=== PATIENT | male | born 1940 | race Caucasian/White ===

== ENCOUNTER 2017-04-02 17:03 | Emergency (ER) | payer OTHER ==
[~2017-04-02] VITALS: Ht 175.3 cm; Wt 70.2 kg
[~2017-04-02 17:03] MED LIST: ALEVE220 MG PO; AMLODIPINE BESY10 MG PO; AMLODIPINE BESYL5 MG PO; ASPIRIN325 MG PO; BENADRYL50 MG PO; CALCIUM 600 +1 EA15 PO; CIPRO500 MG PO; CLEAR EYES ITCH15 ML BOTH EYES; CYANOCOBALAM1000 MCG PO; ELIQUIS5 MG PO; FLAGYL500 MG PO; IMODIUM MS REL1 EACH PO; LISINOPRIL20 MG PO; LO-DOSE ASPIRIN81 M2 PO; LOPERAMIDE2 MG PO; METOPROLOL SUCC50 MG PO; NORVASC2.5 MG PO; PREDNISONE5 MG PO; PROBIOTIC1 EAC1 PO; REQUIP5 MG PO; SIMVASTATIN40 MG PO; VITAMIN B12; WARFARIN SODIU2.5 MG PO; WARFARIN SODIUM5 MG PO; probiotic PO
[2017-04-02 17:54] LABS: MCH 30.3 PG (29.0-34.0); MCHC 33.3 G/DL (30.0-36.0); MEAN PLAT.VOLUME 10.6 uM^3 (9.0-12.4); PLATELET COUNT 101 K/uL (156-360); RBC DIS.WIDTH-CV 17.8 % (11.8-14.6); RBC DIS.WIDTH-SD 59.8 % (39-53); RED BLOOD COUNT 3.96 M/uL (4.00-5.50); WHITE BLOOD COUNT 8.1 K/uL (4.1-10.2)
[2017-04-02 18:00] LABS: MCV 90.9 FL (86-99)
[2017-04-02 18:05] LABS: CHLORIDE 108 mEq/L (99-109); POTASSIUM 3.9 mEq/L (3.7-5.4); SODIUM 140 mEq/L (136-147)
[2017-04-02 18:07] LABS: GLUCOSE 86 mg/dL (70-99)
[2017-04-02 18:09] LABS: ANION GAP 10 MEQ/L (2-14); TOTAL BILIRUBIN 0.6 mg/dL (0.0-1.0)
[2017-04-02 18:11] LABS: ALKALINE PHOSPHATASE 70 IU/L (3-129); GFR ESTIMATE (CALCULATED) 48 mL/min/
[2017-04-02 18:12] LABS: UREA NITROGEN (BUN) 23 mg/dL (9-23)
[2017-04-02 18:15] LABS: TROP-I INTERPRETATION NEGATIVE; TROPONIN-I < 0.01 ng/mL (0.0-0.30)
[2017-04-02 18:40] LABS: INTER. NORMALIZED RATIO 1.6; PROTHROMBIN TIME 16.9 (9.2-11.2)
[2017-04-02 19:20] VITALS: BP 146/65
[2017-04-02 19:32] LABS: EOSINOPHIL (%) 0.9 % (0-5); EOSINOPHIL COUNT 0.1 K/uL (0-0.3); HEMATOLOGY COMMENT 1 SMEAR COMPATIBLE; IMMATURE GRANULOCYTE COUNT 0.6 K/uL; INSTRUMENT ABS NEUTROPHIL CT 5.1 K/uL; LYMPHOCYTE COUNT 1.6 K/uL (1.0-2.8); MONOCYTE (%) 7.8 % (3-12); MONOCYTE COUNT 0.6 K/uL (0-0.8); NEUTROPHIL (%) 63.8 % (45-76); NEUTROPHIL COUNT 5.1 K/uL (1.8-6.4); PLAT.SUFFICIENCY ADEQUATE
== END 2017-04-02 19:20 | disposition home or self-care (01) ==
LOC: EME 17:03
PROVIDERS: Physician Assistant
DX: R00.1 Bradycardia, unspecified (principal); R42 Dizziness and giddiness; E78.5 Hyperlipidemia, unspecified; Z87.891 Personal history of nicotine dependence
CPT/HCPCS: 71010; 80053; 81003; 84484; 85025; 85610; 93005; 99281; 99284

== ENCOUNTER → 2017-07-11 | Outpatient (CLI) | payer OTHER | END | disposition home or self-care (01) | LOC: JMC 07:30 | PROC: 07DR3ZX Extraction of Iliac Bone Marrow, Percutaneous Approach, Diagnostic (ICD-10-PCS; principal; 2017-07-11) | DX: D64.9 Anemia, unspecified (principal); D69.6 Thrombocytopenia, unspecified | CPT/HCPCS: 38221; 85999; 88184 90; 88185 90; 88189 90; 88237 90; 88264 90; 88271 90; 88275 90; 88280 90; 88291 90; G0463 25 ==

== ENCOUNTER → 2017-11-23 | Outpatient (CLI) | payer OTHER ==
[~2017-11-23] VITALS: Ht 174 cm; Wt 68.0 kg
[~2017-11-23] MED LIST changes: +OMEPRAZOLE40 M1 PO
== END | disposition home or self-care (01) ==
LOC: AMB 11-09 11:30
PROC: 0DBN8ZX Excision of Sigmoid Colon, Via Natural or Artificial Opening Endoscopic, Diagnostic (ICD-10-PCS; principal; 2017-11-23)
DX: K57.30 Diverticulosis of large intestine without perforation or abscess without bleeding (principal); K56.2 Volvulus; I10 Essential (primary) hypertension; K21.9 Gastro-esophageal reflux disease without esophagitis; Z95.0 Presence of cardiac pacemaker; Z79.82 Long term (current) use of aspirin; Z79.01 Long term (current) use of anticoagulants; Z87.891 Personal history of nicotine dependence
CPT/HCPCS: 88305

== ENCOUNTER 2018-01-19 13:13 | Emergency (ER) | payer OTHER ==
[~2018-01-19] VITALS: Ht 175.3 cm; Wt 67.2 kg
[2018-01-19 13:50] LABS: HEMATOCRIT 37.3 % (38.0-50.0); HEMOGLOBIN 12.2 G/DL (12.5-16.6); MCH 28.1 PG (29.0-34.0); MCHC 32.7 G/DL (30.0-36.0); MCV 85.9 FL (86-99); PLATELET COUNT 84 K/uL (156-360); RBC DIS.WIDTH-CV 19.4 % (11.8-14.6); RBC DIS.WIDTH-SD 60.4 % (39-53); RED BLOOD COUNT 4.34 M/uL (4.00-5.50); WHITE BLOOD COUNT 14.7 K/uL (4.1-10.2)
[2018-01-19 13:58] LABS: ALBUMIN 3.8 g/dL (3.2-4.8)
[2018-01-19 13:59] LABS: CHLORIDE 107 mEq/L (99-109); POTASSIUM 3.8 mEq/L (3.7-5.4); SODIUM 139 mEq/L (136-147)
[2018-01-19 14:01] LABS: GLUCOSE 92 mg/dL (70-99)
[2018-01-19 14:03] LABS: TOTAL BILIRUBIN 1.5 mg/dL (0.0-1.0)
[2018-01-19 14:04] LABS: ALKALINE PHOSPHATASE 74 IU/L (3-129)
[2018-01-19 14:05] LABS: CREATININE 1.2 mg/dL (0.6-1.3); GFR ESTIMATE (CALCULATED) > 59 mL/min/ (58.99-99999)
[2018-01-19 14:06] LABS: AST (GOT) 19 IU/L (2-34); UREA NITROGEN (BUN) 20 mg/dL (9-23)
[2018-01-19 14:07] LABS: ALT (GPT) 14 IU/L (3-49)
[2018-01-19] MEDS ORDERED: CIPRO500 MG PO (15:18)
[2018-01-19] MEDS ORDERED: FLAGYL500 MG PO (15:18)
[2018-01-19] MEDS ORDERED: ZOFRAN ODT4 MG PO (15:19)
[2018-01-19] MEDS ORDERED: BENTYL10 MG PO (15:19)
[2018-01-19 15:50] VITALS: BP 145/64
== END 2018-01-19 15:52 | disposition home or self-care (01) ==
LOC: EME 13:13
PROVIDERS: Nurse Practitioner Family
DX: K57.90 Diverticulosis of intestine, part unspecified, without perforation or abscess without bleeding (principal); K59.00 Constipation, unspecified; R11.0 Nausea; E78.5 Hyperlipidemia, unspecified; K21.9 Gastro-esophageal reflux disease without esophagitis; Z85.72 Personal history of non-Hodgkin lymphomas; Z85.828 Personal history of other malignant neoplasm of skin; Z87.891 Personal history of nicotine dependence; Z79.01 Long term (current) use of anticoagulants; Z79.82 Long term (current) use of aspirin
CPT/HCPCS: 74177; 80053; 85027; 99281; 99284; J2405; J7030

== ENCOUNTER 2018-01-21 10:28 | Emergency (ER) | payer OTHER ==
[~2018-01-21] VITALS: Ht 175.3 cm; Wt 67.6 kg
[~2018-01-21 10:28] MED LIST changes: +BENTYL10 MG PO; +ZOFRAN ODT4 MG PO
[2018-01-21 10:58] LABS: HEMATOCRIT 35.5 % (38.0-50.0); HEMOGLOBIN 11.6 G/DL (12.5-16.6); MCHC 32.7 G/DL (30.0-36.0); MCV 85.5 FL (86-99); PLATELET COUNT 75 K/uL (156-360); RBC DIS.WIDTH-CV 18.5 % (11.8-14.6); RBC DIS.WIDTH-SD 57.8 % (39-53); RED BLOOD COUNT 4.15 M/uL (4.00-5.50); WHITE BLOOD COUNT 7.8 K/uL (4.1-10.2)
[2018-01-21 11:07] LABS: PTT 27.3 SEC (25-37)
[2018-01-21 11:08] LABS: INTER. NORMALIZED RATIO 1.7
[2018-01-21 11:12] LABS: CHLORIDE 106 mEq/L (99-109); POTASSIUM 3.7 mEq/L (3.7-5.4); SODIUM 137 mEq/L (136-147)
[2018-01-21 11:14] LABS: GLUCOSE 130 mg/dL (70-99)
[2018-01-21 11:18] LABS: CREATININE 1.4 mg/dL (0.6-1.3); GFR ESTIMATE (CALCULATED) 52 mL/min/ (58.99-99999)
[2018-01-21 11:19] LABS: UREA NITROGEN (BUN) 22 mg/dL (9-23)
[2018-01-21 11:24] LABS: TROP-I INTERPRETATION NEGATIVE; TROPONIN-I < 0.01 ng/mL (0.0-0.30)
[2018-01-21 11:42] LABS: ABS NEUTROPHIL COUNT 7.1; ANISOCYTOSIS 2+; ATYPICAL LYMPHOCYTE 1.8 %; BAND NEUTROPHILS 0.9 % (0-8.0); EOSINOPHIL ABS CT 0; LYMPHOCYTES 5.3 % (15.0-45.0); MICROCYTOSIS 2+; MONOCYTES 1.7 % (0-9.0); PLAT.SUFFICIENCY DECREASED; POLYCHROMASIA 1+
[2018-01-21 11:45] LABS: SEG.NEUTROPHILS 90.3 % (46.0-76.0)
[2018-01-21 13:22] LABS: APPEARANCE CLEAR ((CLEAR)); BILIRUBIN NEGATIVE; BLOOD NEGATIVE; COLOR YELLOW ((YELLOW)); GLUCOSE (STRIP) NEGATIVE; KETONES 5; LEUKOCYTES NEGATIVE; NITRITE NEGATIVE; PROTEIN (STRIP) NEGATIVE; SPECIFIC GRAVITY 1.009 (1.000-1.030); UCUL ADDED? NO; UROBILINOGEN 0.2 MG/DL (0.2-1.0)
[2018-01-21 14:12] VITALS: BP 131/75
== END 2018-01-21 14:12 | disposition home or self-care (01) ==
LOC: EME 10:28
PROVIDERS: Emergency Medicine
DX: R42 Dizziness and giddiness (principal); K52.9 Noninfective gastroenteritis and colitis, unspecified; Z87.891 Personal history of nicotine dependence; K21.9 Gastro-esophageal reflux disease without esophagitis; E78.5 Hyperlipidemia, unspecified; Z85.828 Personal history of other malignant neoplasm of skin; Z95.5 Presence of coronary angioplasty implant and graft; R31.9 Hematuria, unspecified; R11.0 Nausea; R53.1 Weakness; Z79.82 Long term (current) use of aspirin; Z79.01 Long term (current) use of anticoagulants
CPT/HCPCS: 70450; 71045; 74176; 80048; 81003; 83605; 84484; 85025; 85610; 85730; 93005; 99281; 99285

== ENCOUNTER 2018-02-02 03:52 | Inpatient (IN) | payer OTHER ==
[~2018-02-02] VITALS: Ht 172.7 cm; Wt 68.6 kg
[~2018-02-02 03:52] MED LIST changes: +COUMADIN5 MG PO; -WARFARIN SODIU2.5 MG PO
[2018-02-02 04:47] LABS: HEMATOCRIT 34.8 % (38.0-50.0); HEMOGLOBIN 11.6 G/DL (12.5-16.6); MCHC 33.3 G/DL (30.0-36.0); MCV 84.1 FL (86-99); PLATELET COUNT 82 K/uL (156-360); RBC DIS.WIDTH-CV 17.7 % (11.8-14.6); RBC DIS.WIDTH-SD 54.2 % (39-53); RED BLOOD COUNT 4.14 M/uL (4.00-5.50)
[2018-02-02 04:55] LABS: ALBUMIN 3.3 g/dL (3.2-4.8); CHLORIDE 110 mEq/L (99-109); POTASSIUM 3.6 mEq/L (3.7-5.4); SODIUM 143 mEq/L (136-147)
[2018-02-02 04:57] LABS: GLUCOSE 94 mg/dL (70-99); TOTAL PROTEIN 6.1 g/dL (6.4-8.3)
[2018-02-02 04:59] LABS: TOTAL BILIRUBIN 0.5 mg/dL (0.0-1.0)
[2018-02-02 05:01] LABS: ALKALINE PHOSPHATASE 67 IU/L (3-129); GFR ESTIMATE (CALCULATED) > 59 mL/min/ (58.99-99999)
[2018-02-02 05:02] LABS: UREA NITROGEN (BUN) 17 mg/dL (9-23)
[2018-02-02 05:03] LABS: AST (GOT) 15 IU/L (2-34)
[2018-02-02 05:04] LABS: ALT (GPT) 12 IU/L (3-49); LIPASE 31 U/L (1.0-51.0)
[2018-02-02 05:21] LABS: ABS NEUTROPHIL COUNT 3.7; ANISOCYTOSIS 2+; ATYPICAL LYMPHOCYTE 3.5 %; BASOPHILS 3.5 %; EOSINOPHIL ABS CT 0; MICROCYTOSIS 1+; MONOCYTES 5.3 % (0-9.0); PLAT.SUFFICIENCY DECREASED; TEAR DROP CELLS 1+
[2018-02-02 05:23] LABS: LYMPHOCYTES 25.4 % (15.0-45.0); SEG.NEUTROPHILS 62.3 % (46.0-76.0)
[2018-02-02] MEDS ORDERED: ASCORBIC ACID500 M3 PO (07:56)
[2018-02-02 09:13] LABS: LACTATE DEHYDROGENASE 227 IU/L (20-246)
[2018-02-02 09:15] LABS: APPEARANCE CLEAR ((CLEAR)); BILIRUBIN NEGATIVE; BLOOD NEGATIVE; COLOR STRAW ((YELLOW)); GLUCOSE (STRIP) NEGATIVE; KETONES NEGATIVE; LEUKOCYTES NEGATIVE; NITRITE NEGATIVE; PROTEIN (STRIP) NEGATIVE; SPECIFIC GRAVITY 1.025 (1.000-1.030); UCUL ADDED? NO; UROBILINOGEN 0.2 MG/DL (0.2-1.0)
[2018-02-02 15:15] LABS: INTER. NORMALIZED RATIO 2.2
[2018-02-02 16:23] VITALS: BP 163/70
[2018-02-02 20:58] VITALS: BP 165/74
[2018-02-03 00:11] VITALS: BP 158/77
[2018-02-03 06:43] VITALS: BP 160/67
[2018-02-03 06:49] LABS: HEMATOCRIT 35.4 % (38.0-50.0); HEMOGLOBIN 11.5 G/DL (12.5-16.6); MCH 27.4 PG (29.0-34.0); MCHC 32.5 G/DL (30.0-36.0); MCV 84.3 FL (86-99); RBC DIS.WIDTH-CV 17.4 % (11.8-14.6); RBC DIS.WIDTH-SD 53.3 % (39-53); WHITE BLOOD COUNT 6.4 K/uL (4.1-10.2)
[2018-02-03 07:14] LABS: CHLORIDE 107 MEQ/L (99-109); GFR ESTIMATE (CALCULATED) > 59 mL/min/ (58.99-99999); GLUCOSE 87 mg/dL (70-99); SODIUM 141 MEQ/L (136-147); UREA NITROGEN (BUN) 10 mg/dL (9-23)
[2018-02-03 07:18] LABS: POTASSIUM 4.6 MEQ/L (3.7-5.4)
[2018-02-03 07:42] LABS: PLAT.SUFFICIENCY DECREASED; PLATELET COUNT 72 K/uL (156-360)
[2018-02-03 12:22] VITALS: BP 149/69
[2018-02-03 15:30] VITALS: BP 156/66
[2018-02-03 20:00] VITALS: BP 122/59
[2018-02-03 23:55] VITALS: BP 146/66
[2018-02-04 04:16] VITALS: BP 122/56
[2018-02-04 06:56] LABS: HEMATOCRIT 32.5 % (38.0-50.0); HEMOGLOBIN 10.7 G/DL (12.5-16.6); MCH 27.6 PG (29.0-34.0); MCHC 32.9 G/DL (30.0-36.0); PLATELET COUNT 62 K/uL (156-360); RBC DIS.WIDTH-CV 17.2 % (11.8-14.6); RBC DIS.WIDTH-SD 52.9 % (39-53); RED BLOOD COUNT 3.87 M/uL (4.00-5.50)
[2018-02-04 07:00] LABS: INTER. NORMALIZED RATIO 1.4
[2018-02-04 07:10] VITALS: BP 125/59
[2018-02-04 07:21] LABS: CHLORIDE 106 MEQ/L (99-109); GFR ESTIMATE (CALCULATED) > 59 mL/min/ (58.99-99999); GLUCOSE 89 mg/dL (70-99); PHOSPHORUS 2.6 mg/dL (2.5-4.9); POTASSIUM 3.9 MEQ/L (3.7-5.4); SODIUM 138 MEQ/L (136-147); UREA NITROGEN (BUN) 10 mg/dL (9-23)
[2018-02-04 07:58] LABS: CARCINOEMBR.ANTIGEN 3.9 NG/ML
[2018-02-04 08:03] LABS: FERRITIN 85 NG/ML (22-322)
[2018-02-04 11:00] VITALS: BP 132/63
[2018-02-04 15:30] VITALS: BP 131/63
[2018-02-04 21:51] VITALS: BP 179/72
[2018-02-04 23:52] VITALS: BP 108/53
[2018-02-05] VITALS (7 sets, daily range): BP systolic 110–145; BP diastolic 55–65
[2018-02-05 07:10] LABS: PLATELET COUNT 80 K/uL (156-360)
[2018-02-05 07:15] LABS: HEMATOCRIT 29.4 % (38.0-50.0); HEMOGLOBIN 9.3 G/DL (12.5-16.6); MCH 27.4 PG (29.0-34.0); MCHC 31.6 G/DL (30.0-36.0); MCV 86.5 FL (86-99); RBC DIS.WIDTH-CV 17.2 % (11.8-14.6)
[2018-02-05 08:09] LABS: INTER. NORMALIZED RATIO 1.3
[2018-02-05 08:11] LABS: PTT 21.9 SEC (25-37)
[2018-02-05 08:19] LABS: CHLORIDE 105 MEQ/L (99-109); CREATININE 1.3 MG/DL (0.6-1.3); GFR ESTIMATE (CALCULATED) 57 mL/min/ (58.99-99999); POTASSIUM 4.1 MEQ/L (3.7-5.4); SODIUM 138 MEQ/L (136-147); UREA NITROGEN (BUN) 17 mg/dL (9-23)
[2018-02-05 08:26] LABS: GLUCOSE 152 mg/dL (70-99); MAGNESIUM 1.5 mg/dl (1.3-2.7); PHOSPHORUS 4.1 mg/dL (2.5-4.9)
[2018-02-06] VITALS (12 sets, daily range): BP systolic 109–138; BP diastolic 50–65
[2018-02-06 06:52] LABS: INTER. NORMALIZED RATIO 1.4
[2018-02-06 07:11] LABS: HEMATOCRIT 21.4 % (38.0-50.0); MCH 27.8 PG (29.0-34.0); MCHC 32.2 G/DL (30.0-36.0); MCV 86.3 FL (86-99); RBC DIS.WIDTH-CV 17.8 % (11.8-14.6); RBC DIS.WIDTH-SD 56.1 % (39-53); WHITE BLOOD COUNT 17.2 K/uL (4.1-10.2)
[2018-02-06 07:12] LABS: HEMOGLOBIN 6.9 G/DL (12.5-16.6); RED BLOOD COUNT 2.48 M/uL (4.00-5.50)
[2018-02-06 07:17] LABS: CHLORIDE 109 MEQ/L (99-109); CREATININE 0.9 MG/DL (0.6-1.3); GFR ESTIMATE (CALCULATED) > 59 mL/min/ (58.99-99999); GLUCOSE 117 mg/dL (70-99); MAGNESIUM 1.6 mg/dl (1.3-2.7); POTASSIUM 3.8 MEQ/L (3.7-5.4); SODIUM 138 MEQ/L (136-147); UREA NITROGEN (BUN) 13 mg/dL (9-23)
[2018-02-06 07:28] LABS: PHOSPHORUS 1.7 mg/dL (2.5-4.9)
[2018-02-06 07:49] LABS: IMM.PLATELET FRACTION 9.8 (1-7); PLAT.SUFFICIENCY DECREASED
[2018-02-06 07:54] LABS: PLATELET COUNT 44 K/uL (156-360)
[2018-02-06 18:12] LABS: HEMATOCRIT 25.3 % (38.0-50.0); HEMOGLOBIN 8.4 G/DL (12.5-16.6); MCV 86.3 FL (86-99)
[2018-02-07 00:27] VITALS: BP 136/63
[2018-02-07 04:39] VITALS: BP 135/63
[2018-02-07 06:23] LABS: HEMATOCRIT 26.2 % (38.0-50.0); HEMOGLOBIN 8.7 G/DL (12.5-16.6); MCH 28.3 PG (29.0-34.0); MCHC 33.2 G/DL (30.0-36.0); MCV 85.3 FL (86-99); RBC DIS.WIDTH-CV 16.3 % (11.8-14.6); RBC DIS.WIDTH-SD 49.6 % (39-53); WHITE BLOOD COUNT 11.2 K/uL (4.1-10.2)
[2018-02-07 06:24] LABS: RED BLOOD COUNT 3.07 M/uL (4.00-5.50)
[2018-02-07 06:30] LABS: INTER. NORMALIZED RATIO 1.3
[2018-02-07 06:49] LABS: CHLORIDE 110 MEQ/L (99-109); CREATININE 0.9 MG/DL (0.6-1.3); GFR ESTIMATE (CALCULATED) > 59 mL/min/ (58.99-99999); GLUCOSE 110 mg/dL (70-99); MAGNESIUM 1.7 mg/dl (1.3-2.7); POTASSIUM 3.6 MEQ/L (3.7-5.4); SODIUM 141 MEQ/L (136-147); UREA NITROGEN (BUN) 9 mg/dL (9-23)
[2018-02-07 06:52] LABS: IMM.PLATELET FRACTION 9.9 (1-7); PHOSPHORUS 2.3 mg/dL (2.5-4.9); PLAT.SUFFICIENCY DECREASED; PLATELET COUNT 34 K/uL (156-360)
[2018-02-07 08:07] VITALS: BP 128/59
[2018-02-07 11:31] VITALS: BP 136/63
[2018-02-07 15:37] VITALS: BP 122/60
[2018-02-07 20:17] VITALS: BP 128/60
[2018-02-08 00:40] VITALS: BP 136/64
[2018-02-08 06:36] LABS: HEMATOCRIT 28.6 % (38.0-50.0); HEMOGLOBIN 9.3 G/DL (12.5-16.6); MCH 28.3 PG (29.0-34.0); MCHC 32.5 G/DL (30.0-36.0); MCV 86.9 FL (86-99); RBC DIS.WIDTH-CV 16.1 % (11.8-14.6); RBC DIS.WIDTH-SD 50.8 % (39-53); RED BLOOD COUNT 3.29 M/uL (4.00-5.50); WHITE BLOOD COUNT 9.9 K/uL (4.1-10.2)
[2018-02-08 07:00] LABS: CHLORIDE 109 MEQ/L (99-109); GFR ESTIMATE (CALCULATED) > 59 mL/min/ (58.99-99999); GLUCOSE 104 mg/dL (70-99); MAGNESIUM 1.8 mg/dl (1.3-2.7); PHOSPHORUS 2.3 mg/dL (2.5-4.9); POTASSIUM 3.8 MEQ/L (3.7-5.4); SODIUM 141 MEQ/L (136-147); UREA NITROGEN (BUN) 9 mg/dL (9-23)
[2018-02-08 07:15] LABS: PLAT.SUFFICIENCY DECREASED
[2018-02-08 07:20] LABS: PLATELET COUNT 51 K/uL (156-360)
[2018-02-08 08:30] VITALS: BP 139/63
[2018-02-08 16:20] VITALS: BP 142/67
[2018-02-08 23:23] VITALS: BP 154/72
[2018-02-09 07:23] LABS: HEMATOCRIT 31.8 % (38.0-50.0); HEMOGLOBIN 10.5 G/DL (12.5-16.6); MCH 28.2 PG (29.0-34.0); MCV 85.5 FL (86-99); RBC DIS.WIDTH-CV 16.2 % (11.8-14.6); RBC DIS.WIDTH-SD 50.7 % (39-53); RED BLOOD COUNT 3.72 M/uL (4.00-5.50); WHITE BLOOD COUNT 10.3 K/uL (4.1-10.2)
[2018-02-09 07:34] LABS: CHLORIDE 107 MEQ/L (99-109); CREATININE 0.9 MG/DL (0.6-1.3); GFR ESTIMATE (CALCULATED) > 59 mL/min/ (58.99-99999); GLUCOSE 108 mg/dL (70-99); MAGNESIUM 1.7 mg/dl (1.3-2.7); PHOSPHORUS 2.5 mg/dL (2.5-4.9); POTASSIUM 3.7 MEQ/L (3.7-5.4); SODIUM 140 MEQ/L (136-147); UREA NITROGEN (BUN) 8 mg/dL (9-23)
[2018-02-09 07:38] VITALS: BP 140/65
[2018-02-09 09:17] LABS: PLAT.SUFFICIENCY DECREASED
[2018-02-09 09:25] LABS: PLATELET COUNT 88 K/uL (156-360)
[2018-02-09 14:35] VITALS: BP 147/71
[2018-02-09 23:13] VITALS: BP 152/70
[2018-02-10 05:57] LABS: HEMATOCRIT 31.6 % (38.0-50.0); HEMOGLOBIN 10.3 G/DL (12.5-16.6); MCHC 32.6 G/DL (30.0-36.0); MCV 85.9 FL (86-99); RBC DIS.WIDTH-CV 16.3 % (11.8-14.6); RBC DIS.WIDTH-SD 50.5 % (39-53); RED BLOOD COUNT 3.68 M/uL (4.00-5.50); WHITE BLOOD COUNT 10.4 K/uL (4.1-10.2)
[2018-02-10 06:19] LABS: CHLORIDE 106 MEQ/L (99-109); GFR ESTIMATE (CALCULATED) > 59 mL/min/ (58.99-99999); GLUCOSE 97 mg/dL (70-99); MAGNESIUM 1.8 mg/dl (1.3-2.7); PHOSPHORUS 2.9 mg/dL (2.5-4.9); POTASSIUM 3.8 MEQ/L (3.7-5.4); SODIUM 139 MEQ/L (136-147); UREA NITROGEN (BUN) 10 mg/dL (9-23)
[2018-02-10 07:10] LABS: PLAT.SUFFICIENCY ADEQUATE
[2018-02-10 07:12] LABS: PLATELET COUNT 170 K/uL (156-360)
[2018-02-10 07:58] VITALS: BP 145/63
[2018-02-10 16:14] VITALS: BP 121/58
[2018-02-10 22:10] VITALS: BP 123/59
[2018-02-10 23:58] VITALS: BP 137/65
[2018-02-11 06:06] LABS: HEMATOCRIT 32.2 % (38.0-50.0); HEMOGLOBIN 10.5 G/DL (12.5-16.6); MCH 27.7 PG (29.0-34.0); MCHC 32.6 G/DL (30.0-36.0); RBC DIS.WIDTH-CV 16.1 % (11.8-14.6); RBC DIS.WIDTH-SD 49.1 % (39-53); RED BLOOD COUNT 3.79 M/uL (4.00-5.50); WHITE BLOOD COUNT 10.4 K/uL (4.1-10.2)
[2018-02-11 06:26] LABS: CHLORIDE 106 MEQ/L (99-109); GFR ESTIMATE (CALCULATED) > 59 mL/min/ (58.99-99999); GLUCOSE 94 mg/dL (70-99); MAGNESIUM 1.9 mg/dl (1.3-2.7); PHOSPHORUS 2.9 mg/dL (2.5-4.9); SODIUM 140 MEQ/L (136-147); UREA NITROGEN (BUN) 17 mg/dL (9-23)
[2018-02-11 06:50] VITALS: BP 140/65
[2018-02-11 06:59] LABS: PLAT.SUFFICIENCY ADEQUATE; PLATELET COUNT 212 K/uL (156-360)
[2018-02-11 15:00] VITALS: BP 118/59
[2018-02-11 16:54] LABS: INTER. NORMALIZED RATIO 1.2
[2018-02-12 06:18] LABS: HEMATOCRIT 32.3 % (38.0-50.0); HEMOGLOBIN 10.5 G/DL (12.5-16.6); MCH 28.1 PG (29.0-34.0); MCHC 32.5 G/DL (30.0-36.0); MCV 86.4 FL (86-99); RBC DIS.WIDTH-CV 16.6 % (11.8-14.6); RBC DIS.WIDTH-SD 51.1 % (39-53); RED BLOOD COUNT 3.74 M/uL (4.00-5.50)
[2018-02-12 06:43] LABS: INTER. NORMALIZED RATIO 1.2
[2018-02-12 07:21] LABS: PLAT.SUFFICIENCY DECREASED; PLATELET COUNT 240 K/uL (156-360)
[2018-02-12 07:35] VITALS: BP 125/60
[2018-02-12 11:21] LABS: APPEARANCE CLEAR ((CLEAR)); BILIRUBIN NEGATIVE; BLOOD SMALL; COLOR YELLOW ((YELLOW)); GLUCOSE (STRIP) NEGATIVE; KETONES NEGATIVE; LEUKOCYTES NEGATIVE; NITRITE NEGATIVE; PROTEIN (STRIP) NEGATIVE; SPECIFIC GRAVITY 1.011 (1.000-1.030); UROBILINOGEN 0.2 MG/DL (0.2-1.0)
[2018-02-12 11:24] LABS: BACTERIA NONE SEEN /HPF; EPITHELIAL CELLS NONE SEEN /HPF; MUCUS TRACE /LPF; RED BLOOD CELLS 0-5 /HPF (0-5); UCUL ADDED? NO; WHITE BLOOD CELLS 0-5 /HPF (0-5)
[2018-02-12 15:21] VITALS: BP 120/59
[2018-02-12 21:49] VITALS: BP 127/61
[2018-02-13 00:16] VITALS: BP 120/57
[2018-02-13 06:54] LABS: INTER. NORMALIZED RATIO 1.2
[2018-02-13 08:04] VITALS: BP 143/66
[2018-02-13 10:00] LABS: HEMATOCRIT 33.9 % (38.0-50.0); HEMOGLOBIN 10.8 G/DL (12.5-16.6); MCH 28.1 PG (29.0-34.0); MCHC 31.9 G/DL (30.0-36.0); MCV 88.1 FL (86-99); RBC DIS.WIDTH-CV 16.6 % (11.8-14.6); RBC DIS.WIDTH-SD 52.5 % (39-53); RED BLOOD COUNT 3.85 M/uL (4.00-5.50); WHITE BLOOD COUNT 11.9 K/uL (4.1-10.2)
[2018-02-13 10:13] LABS: CHLORIDE 105 MEQ/L (99-109); CREATININE 1.1 MG/DL (0.6-1.3); GFR ESTIMATE (CALCULATED) > 59 mL/min/ (58.99-99999); GLUCOSE 88 mg/dL (70-99); POTASSIUM 4.6 MEQ/L (3.7-5.4); SODIUM 140 MEQ/L (136-147); UREA NITROGEN (BUN) 20 mg/dL (9-23)
[2018-02-13 10:40] LABS: PLAT.SUFFICIENCY ADEQUATE; PLATELET COUNT 260 K/uL (156-360)
[2018-02-13 16:20] VITALS: BP 111/55
[2018-02-13 23:20] VITALS: BP 112/52
[2018-02-14 06:39] LABS: INTER. NORMALIZED RATIO 1.3
[2018-02-14 07:05] VITALS: BP 120/58
[2018-02-14 08:35] LABS: HEMATOCRIT 33.7 % (38.0-50.0); HEMOGLOBIN 10.8 G/DL (12.5-16.6); MCH 28.1 PG (29.0-34.0); MCV 87.5 FL (86-99); RBC DIS.WIDTH-CV 16.8 % (11.8-14.6); RBC DIS.WIDTH-SD 53.4 % (39-53); RED BLOOD COUNT 3.85 M/uL (4.00-5.50); WHITE BLOOD COUNT 10.9 K/uL (4.1-10.2)
[2018-02-14 08:37] LABS: CHLORIDE 106 MEQ/L (99-109); CREATININE 1.1 MG/DL (0.6-1.3); GFR ESTIMATE (CALCULATED) > 59 mL/min/ (58.99-99999); GLUCOSE 87 mg/dL (70-99); POTASSIUM 3.9 MEQ/L (3.7-5.4); SODIUM 140 MEQ/L (136-147); UREA NITROGEN (BUN) 23 mg/dL (9-23)
[2018-02-14 09:01] LABS: PLAT.SUFFICIENCY ADEQUATE; PLATELET COUNT 286 K/uL (156-360)
[2018-02-14 15:35] VITALS: BP 119/59
[2018-02-14 22:36] VITALS: BP 127/61
[2018-02-15 06:45] LABS: HEMOGLOBIN 10.5 G/DL (12.5-16.6); INTER. NORMALIZED RATIO 1.5; MCH 27.8 PG (29.0-34.0); MCHC 31.8 G/DL (30.0-36.0); MCV 87.3 FL (86-99); RBC DIS.WIDTH-CV 16.7 % (11.8-14.6); RBC DIS.WIDTH-SD 53.1 % (39-53); RED BLOOD COUNT 3.78 M/uL (4.00-5.50); WHITE BLOOD COUNT 11.4 K/uL (4.1-10.2)
[2018-02-15 07:22] LABS: CHLORIDE 107 MEQ/L (99-109); CREATININE 1.2 MG/DL (0.6-1.3); GFR ESTIMATE (CALCULATED) > 59 mL/min/ (58.99-99999); GLUCOSE 83 mg/dL (70-99); POTASSIUM 4.1 MEQ/L (3.7-5.4); SODIUM 139 MEQ/L (136-147); UREA NITROGEN (BUN) 19 mg/dL (9-23)
[2018-02-15 07:37] VITALS: BP 126/61
[2018-02-15 07:44] LABS: HEMATOLOGY COMMENT 1 SN; PLAT.SUFFICIENCY ADEQUATE; PLATELET COUNT 255 K/uL (156-360)
[2018-02-15] MEDS ORDERED: AUGMENTIN875 MG PO (10:05)
== END 2018-02-15 14:30 | disposition home health service (06) | DRG 330 ==
LOC: DELPENDDIS → EME 03:52 → 5EAST 07:45 → EDOF 07:45 → ENRESERV 07:47 → EDOF 07:50 → ENRESERV 10:38 → 5EAST 15:13 → ENPENDDIS 02-13 13:15 → 5EAST 02-15 14:30
PROVIDERS: Emergency Medicine; Internal Medicine; Physician Assistant; Surgery
DX: K57.92 Diverticulitis of intestine, part unspecified, without perforation or abscess without bleeding (principal); K56.690 Other partial intestinal obstruction; N32.0 Bladder-neck obstruction; N99.89 Other postprocedural complications and disorders of genitourinary system; S37.39XA Other injury of urethra, initial encounter; Y65.8 Other specified misadventures during surgical and medical care; N36.5 Urethral false passage; D62 Acute posthemorrhagic anemia; D69.6 Thrombocytopenia, unspecified; D72.823 Leukemoid reaction; E78.5 Hyperlipidemia, unspecified; E87.6 Hypokalemia; I48.0 Paroxysmal atrial fibrillation; R31.9 Hematuria, unspecified; R33.9 Retention of urine, unspecified; I10 Essential (primary) hypertension; K59.00 Constipation, unspecified; I25.10 Atherosclerotic heart disease of native coronary artery without angina pectoris; N32.89 Other specified disorders of bladder; N35.9 Urethral stricture, unspecified; R32 Unspecified urinary incontinence; G89.29 Other chronic pain; M19.90 Unspecified osteoarthritis, unspecified site; F10.21 Alcohol dependence, in remission; Z79.01 Long term (current) use of anticoagulants; Z79.82 Long term (current) use of aspirin; Z80.42 Family history of malignant neoplasm of prostate; Z85.46 Personal history of malignant neoplasm of prostate; Z82.49 Family history of ischemic heart disease and other diseases of the circulatory system; Z87.891 Personal history of nicotine dependence; Z95.5 Presence of coronary angioplasty implant and graft
CPT/HCPCS: 71045; 74177; 80048; 80053; 81003; 82232; 82378; 82607; 82728; 83605; 83615; 83690; 83735; 84100; 84153; 85014; 85018; 85025; 85027; 85610; 85730; 86850; 86900; 86901; 86920; 88305; 88307; 97530 GP; 99281; 99285; C1769; J0330; J0744; J1170; J1335; J1885; J2270; J2405; J2710; J2765; J3010; J3430; J3480; J7030; J7040; J7050; J7512; J7643; P9016; S0020; S0030; S0074